=== PATIENT | male | born 1980 | race Caucasian/White ===

== ENCOUNTER 2017-09-29 19:50 | Inpatient (IN) | payer BC ==
[~2017-09-29] VITALS: Ht 177.8 cm; Wt 109.0 kg
[2017-09-29 01:30] VITALS: BP 134/86
[2017-09-29 01:45] VITALS: BP 117/79
[2017-09-29 20:19] LABS: BASOPHILS % (AUTO) 0 % (0-1); EOSINOPHILS % (AUTO) 0.1 % (0-6); HEMATOCRIT 43.4 % (42.0-52.0); HEMOGLOBIN 15.2 g/dl (14.0-17.9); LYMPHOCYTES # (AUTO) 0.7 X10'3 (1.1-4.8); LYMPHOCYTES % (AUTO) 5.4 % (21-51); MEAN CORPUSCULAR HEMOGLOBIN 31.4 PG (27.0-31.0); MEAN CORPUSCULAR HGB CONC 35.1 % (33.0-36.5); MEAN CORPUSCULAR VOLUME 89.6 FL (78-98); MEAN PLATELET VOLUME 9.4 FL (7.4-10.4); MONOCYTES # (AUTO) 0.6 X10'3 (0-0.9); NEUTROPHILS # (AUTO) 12.6 X10'3 (1.8-7.7); NEUTROPHILS % (AUTO) 90.5 % (42-75); PLATELET COUNT 197 X10'3 (140-440); RED BLOOD COUNT 4.84 X10'6 (4.70-6.10); RED CELL DISTRIBUTION WIDTH 12.4 % (11.5-14.5); WHITE BLOOD COUNT 13.9 X10'3 (4.5-11.0)
[2017-09-29] MEDS ORDERED: LORazepam 2 mg/ml vial IV ONE (20:20)
[2017-09-29] MEDS ORDERED: metoclopramide 5 mg/ml inj IV ONE (20:20)
[2017-09-29] MEDS ORDERED: normal saline 1000ML IV soln IVB ONE ×2 (20:20)
[2017-09-29] MEDS ORDERED: diphenhydrAMINE 50 mg/ml inj IV ONE (20:20)
[2017-09-29 20:29] LABS: PROTHROMBIN TIME 10.4 SECONDS (9.0-12.0)
[2017-09-29 20:35] LABS: ALANINE AMINOTRANSFERASE 40 U/L (12-78); ALBUMIN 4.1 G/DL (3.4-5.0); ALKALINE PHOSPHATASE 76 IU/L (46-116); AMYLASE 34 U/L (25-115); ANION GAP 11 (8-16); ASPARTATE AMINO TRANSFERASE 20 U/L (10-37); BLOOD UREA NITROGEN 10 MG/DL (7-18); BUN/CREATININE RATIO 9.2 (5.4-32.0); CALCIUM 8.9 MG/DL (8.5-10.1); CHLORIDE 97 MMOL/L (99-107); CREATININE 1.09 MG/DL (0.60-1.10); GLUCOSE 169 MG/DL (70-104); LIPASE 61 U/L (73-393); POTASSIUM 4.6 MMOL/L (3.5-5.1); SODIUM 133 MMOL/L (135-145); TOTAL CARBON DIOXIDE 25.3 MMOL/L (24-32); TOTAL PROTEIN 8.1 G/DL (6.4-8.2); eGFR 77 ML/MIN
[2017-09-29] MEDS ORDERED: piperacillin/tazo 4.5gm/100ml 100 ML IV SCH (21:45)
[2017-09-29] MEDS ORDERED: ESCI10TA54 PO (21:46)
[2017-09-29] MEDS ORDERED: LISI-600 PO (21:46)
[2017-09-29] MEDS ORDERED: AMLO2.5T2 PO (21:46)
[2017-09-29] MEDS ORDERED: morphine 4 MG/ML inj SYRINge IV PRN ×4 (21:55→22:55)
[2017-09-29] MEDS ORDERED: potassium Cl 40MEQ/NS 500ml 500 ML IV PRN ×2 (22:10)
[2017-09-29] MEDS ORDERED: magnesium 2GM in 50ml NS 50 ML IV PRN (22:10)
[2017-09-29] MEDS ORDERED: magnesium 4gm in 100ml NS 100 ML IV PRN (22:10)
[2017-09-29] MEDS ORDERED: acetaminophen 650mg rectal suppository RC PRN (22:10)
[2017-09-29] MEDS ORDERED: ondansetron/PF 4mg/2ml inj IV PRN ×2 (22:10→22:55)
[2017-09-29] MEDS ORDERED: potassium Cl 20 mEq SR tablet PO PRN ×2 (22:10)
[2017-09-29] MEDS ORDERED: ondansetron/PF 4mg/2ml inj ONE (22:45)
[2017-09-29] MEDS ORDERED: glycopyrrolate 0.2mg/ml inj ONE (22:45)
[2017-09-29] MEDS ORDERED: neostigmine methylsulfate 1 MG/ML 10ml vial ONE (22:45)
[2017-09-29] MEDS ORDERED: desflurane 240ml liquid inh. IH ONE (22:45)
[2017-09-29] MEDS ORDERED: dexamethasone sod phosphate 4mg/ml inj. ONE (22:45)
[2017-09-29] MEDS ORDERED: ringers solution, lacted 1,000 ML IV SCH (22:51)
[2017-09-29] MEDS ORDERED: BUPIVAcaine/PF 2.5mg/ml (0.25%) 10ml vial ONE (22:53)
[2017-09-29] MEDS ORDERED: proCHLORperazine 10 MG/2 ml inj IV PRN (22:55)
[2017-09-29] MEDS ORDERED: meperidine/PF 25mg/ml syringe IV PRN (22:55)
[2017-09-29] MEDS ORDERED: acetaminophen 1,000mg/100ml IV 100 ML IV PRN (22:55)
[2017-09-29] MEDS ORDERED: fentaNYL/PF 50MCG/1 ML 2ML syringe IV PRN (22:55)
[2017-09-29] MEDS ORDERED: midazolam 2 mg/2 ml injection ONE (23:00)
[2017-09-29] MEDS ORDERED: fentaNYL /PF 50mcg/ml 5ml ampule ONE (23:01)
[2017-09-29] MEDS ORDERED: LIDOcaine 2% 5ml jelly ONE (23:03)
[2017-09-30] VITALS (16 sets, daily range): BP systolic 108–160; BP diastolic 69–91
[2017-09-30] MEDS ORDERED: metroNIDAZOLE-Flagyl 500mg/NS 100 ML IV SCH
[2017-09-30] MEDS ORDERED: gentamicin 40 MG/1 ML inj ONE (00:07)
[2017-09-30] MEDS ORDERED: clindamycin phosphate 150mg/ml inj. ONE (00:07)
[2017-09-30] MEDS ORDERED: LIDOcaine 2% (20mg/ml) 5ml vial ONE (00:23)
[2017-09-30] MEDS ORDERED: LIDOcaine 2% 5ml jelly ONE (00:24)
[2017-09-30] MEDS ORDERED: rocuronium 10mg/ml inj IV ONE (00:24)
[2017-09-30] MEDS ORDERED: propofol inj 20 ML IV ONE (00:24)
[2017-09-30] MEDS: fentaNYL/PF 50MCG/1 ML 2ML syringe IV PRN ×2 (00:51→01:03)
[2017-09-30] MEDS: metroNIDAZOLE-Flagyl 500mg/NS 100 ML IV SCH ×4 (02:51→23:48)
[2017-09-30] MEDS ORDERED: piperacillin/tazo 3.375gm/50ml 50 ML IV ONE (02:58)
[2017-09-30] MEDS: normal saline 1000ml 1,000 ML IV SCH ×3 (03:00→15:29)
[2017-09-30] MEDS: piperacillin/tazo 3.375gm/50ml 50 ML IV SCH ×4 (03:41→20:19)
[2017-09-30 04:53] LABS: BASOPHILS % (AUTO) 0 % (0-1); EOSINOPHILS % (AUTO) 0 % (0-6); HEMOGLOBIN 13.3 g/dl (14.0-17.9); LYMPHOCYTES # (AUTO) 0.3 X10'3 (1.1-4.8); LYMPHOCYTES % (AUTO) 3.8 % (21-51); MEAN CORPUSCULAR VOLUME 91.4 FL (78-98); MONOCYTES # (AUTO) 0.5 X10'3 (0-0.9); MONOCYTES % (AUTO) 5.6 % (2-12); NEUTROPHILS # (AUTO) 7.5 X10'3 (1.8-7.7); NEUTROPHILS % (AUTO) 90.6 % (42-75); PLATELET COUNT 160 X10'3 (140-440); RED BLOOD COUNT 4.15 X10'6 (4.70-6.10); WHITE BLOOD COUNT 8.2 X10'3 (4.5-11.0)
[2017-09-30 05:34] LABS: PARTIAL THROMBOPLASTIN TIME 28 SECONDS (22-32); PROTHROMBIN TIME 10.7 SECONDS (9.0-12.0)
[2017-09-30 05:50] LABS: ALANINE AMINOTRANSFERASE 55 U/L (12-78); ALBUMIN 3.2 G/DL (3.4-5.0); ALBUMIN/GLOBULIN RATIO 0.9 (1.1-1.5); ALKALINE PHOSPHATASE 52 IU/L (46-116); ANION GAP 11 (8-16); ASPARTATE AMINO TRANSFERASE 33 U/L (10-37); BILIRUBIN,TOTAL 1.3 MG/DL (0.1-1.0); BLOOD UREA NITROGEN 12 MG/DL (7-18); BUN/CREATININE RATIO 9.1 (5.4-32.0); CALCIUM 7.8 MG/DL (8.5-10.1); CHLORIDE 102 MMOL/L (99-107); CREATININE 1.32 MG/DL (0.60-1.10); GLUCOSE 146 MG/DL (70-104); MAGNESIUM 1.4 MG/DL (1.5-2.4); POTASSIUM 4.8 MMOL/L (3.5-5.1); SODIUM 137 MMOL/L (135-145); TOTAL PROTEIN 6.6 G/DL (6.4-8.2); eGFR 62 ML/MIN
[2017-09-30 06:08] LABS: PLATELET ESTIMATE NORMAL; TOTAL CELLS COUNTED 100
[2017-09-30] MEDS: morphine 4 MG/ML inj SYRINge IV PRN ×4 (07:34→19:50)
[2017-09-30] MEDS: lactobacillus rhamnosus 10,000 MMU CELLS/CAPSULE PO SCH ×2 (07:36→20:20)
[2017-09-30] MEDS: enoxaparin 40mg/0.4ml syringe SUBCUT SCH (07:37)
[2017-09-30] MEDS: methylnaltrexone br 12mg/0.6ml inj***SubQ only SQ SCH (07:37)
[2017-09-30] MEDS: magnesium Cl slow-release 64mg tablet PO PRN ×2 (07:37→22:21)
[2017-09-30] MEDS: K and/or MAG REPLACEMENT MC SCH (07:38)
[2017-09-30] MEDS: HYDROcodone/acetaminophen 5mg/325mg tablet PO PRN ×4 (09:41→22:20)
[2017-09-30] MEDS ORDERED: thiamine 100mg/ml 2ml inj. IV ONE (15:05)
[2017-09-30] MEDS ORDERED: dextrose 50%-water 50ml dispensing syringe IV PRN (15:05)
[2017-09-30] MEDS ORDERED: haloperidol lactate 5mg/ml inj IM PRN (15:05)
[2017-09-30] MEDS ORDERED: LORazepam 2 mg/ml vial IV PRN (15:05)
[2017-09-30] MEDS ORDERED: haloperidol 5mg tablet PO PRN (15:05)
[2017-10-01] VITALS: BP 147/99
[2017-10-01] MEDS: morphine 4 MG/ML inj SYRINge IV PRN ×5 (01:28→20:03)
[2017-10-01] MEDS: piperacillin/tazo 3.375gm/50ml 50 ML IV SCH ×4 (02:00→20:03)
[2017-10-01 03:43] LABS: BASOPHILS % (AUTO) 0.1 % (0-1); EOSINOPHILS # (AUTO) 0.6 X10'3 (0-0.9); EOSINOPHILS % (AUTO) 7.7 % (0-6); HEMATOCRIT 37.9 % (42.0-52.0); HEMOGLOBIN 13.2 g/dl (14.0-17.9); LYMPHOCYTES # (AUTO) 0.5 X10'3 (1.1-4.8); LYMPHOCYTES % (AUTO) 5.8 % (21-51); MEAN CORPUSCULAR HEMOGLOBIN 31.7 PG (27.0-31.0); MEAN CORPUSCULAR HGB CONC 34.7 % (33.0-36.5); MEAN CORPUSCULAR VOLUME 91.4 FL (78-98); MEAN PLATELET VOLUME 9.1 FL (7.4-10.4); MONOCYTES # (AUTO) 0.5 X10'3 (0-0.9); NEUTROPHILS # (AUTO) 6.6 X10'3 (1.8-7.7); NEUTROPHILS % (AUTO) 80.4 % (42-75); PLATELET COUNT 150 X10'3 (140-440); RED BLOOD COUNT 4.15 X10'6 (4.70-6.10); RED CELL DISTRIBUTION WIDTH 13.3 % (11.5-14.5); WHITE BLOOD COUNT 8.2 X10'3 (4.5-11.0)
[2017-10-01 04:02] LABS: ALANINE AMINOTRANSFERASE 39 U/L (12-78); ALBUMIN 2.9 G/DL (3.4-5.0); ALBUMIN/GLOBULIN RATIO 0.7 (1.1-1.5); ALKALINE PHOSPHATASE 45 IU/L (46-116); ANION GAP 11 (8-16); ASPARTATE AMINO TRANSFERASE 24 U/L (10-37); BILIRUBIN,TOTAL 0.9 MG/DL (0.1-1.0); BLOOD UREA NITROGEN 14 MG/DL (7-18); BUN/CREATININE RATIO 13.5 (5.4-32.0); CHLORIDE 103 MMOL/L (99-107); CREATININE 1.04 MG/DL (0.60-1.10); GLUCOSE 133 MG/DL (70-104); MAGNESIUM 2.2 MG/DL (1.5-2.4); POTASSIUM 4.2 MMOL/L (3.5-5.1); SODIUM 140 MMOL/L (135-145); TOTAL CARBON DIOXIDE 26.5 MMOL/L (24-32); TOTAL PROTEIN 7.3 G/DL (6.4-8.2); eGFR 81 ML/MIN
[2017-10-01] MEDS: HYDROcodone/acetaminophen 5mg/325mg tablet PO PRN (04:10)
[2017-10-01] MEDS: normal saline 1000ml 1,000 ML IV SCH ×2 (04:10→15:24)
[2017-10-01 06:55] LABS: INR 1.1 INR; PARTIAL THROMBOPLASTIN TIME 34 SECONDS (22-32)
[2017-10-01 07:28] VITALS: BP 132/97
[2017-10-01] MEDS: K and/or MAG REPLACEMENT MC SCH (08:00)
[2017-10-01] MEDS: amLODIPine 2.5mg tablet PO SCH (09:32)
[2017-10-01] MEDS: lisinopril 20mg tablet PO SCH (09:32)
[2017-10-01] MEDS: enoxaparin 40mg/0.4ml syringe SUBCUT SCH (09:33)
[2017-10-01] MEDS: citalopram 20mg tablet PO SCH (09:33)
[2017-10-01] MEDS: lactobacillus rhamnosus 10,000 MMU CELLS/CAPSULE PO SCH ×2 (09:33→20:02)
[2017-10-01] MEDS: metroNIDAZOLE-Flagyl 500mg/NS 100 ML IV SCH (10:18)
[2017-10-01 12:20] VITALS: BP 159/105
[2017-10-01] MEDS ORDERED: hydrALAZINE 20mg/ml inj. IV PRN (13:10)
[2017-10-01 16:55] VITALS: BP 135/88
[2017-10-01 20:00] VITALS: BP 133/86
[2017-10-02] VITALS: BP 137/84
[2017-10-02] MEDS: normal saline 1000ml 1,000 ML IV SCH ×4 (00:14→21:52)
[2017-10-02] MEDS: morphine 4 MG/ML inj SYRINge IV PRN ×6 (00:15→21:48)
[2017-10-02] MEDS: piperacillin/tazo 3.375gm/50ml 50 ML IV SCH ×4 (02:04→19:27)
[2017-10-02 05:47] LABS: PARTIAL THROMBOPLASTIN TIME 30 SECONDS (22-32)
[2017-10-02 05:48] LABS: BASOPHILS % (AUTO) 0.2 % (0-1); EOSINOPHILS # (AUTO) 0.1 X10'3 (0-0.9); EOSINOPHILS % (AUTO) 1.4 % (0-6); HEMATOCRIT 36.3 % (42.0-52.0); HEMOGLOBIN 12.7 g/dl (14.0-17.9); LYMPHOCYTES # (AUTO) 0.6 X10'3 (1.1-4.8); LYMPHOCYTES % (AUTO) 7.3 % (21-51); MEAN CORPUSCULAR HEMOGLOBIN 31.8 PG (27.0-31.0); MEAN CORPUSCULAR VOLUME 90.8 FL (78-98); MEAN PLATELET VOLUME 9.9 FL (7.4-10.4); MONOCYTES # (AUTO) 0.5 X10'3 (0-0.9); MONOCYTES % (AUTO) 6.4 % (2-12); NEUTROPHILS # (AUTO) 7.2 X10'3 (1.8-7.7); NEUTROPHILS % (AUTO) 84.7 % (42-75); PLATELET COUNT 168 X10'3 (140-440); RED CELL DISTRIBUTION WIDTH 12.8 % (11.5-14.5); WHITE BLOOD COUNT 8.5 X10'3 (4.5-11.0)
[2017-10-02 06:08] LABS: ALANINE AMINOTRANSFERASE 30 U/L (12-78); ALBUMIN 2.5 G/DL (3.4-5.0); ALBUMIN/GLOBULIN RATIO 0.6 (1.1-1.5); ALKALINE PHOSPHATASE 182 IU/L (46-116); ANION GAP 8 (8-16); ASPARTATE AMINO TRANSFERASE 25 U/L (10-37); BILIRUBIN,TOTAL 0.8 MG/DL (0.1-1.0); BLOOD UREA NITROGEN 17 MG/DL (7-18); BUN/CREATININE RATIO 17.3 (5.4-32.0); CALCIUM 8.4 MG/DL (8.5-10.1); CHLORIDE 102 MMOL/L (99-107); CREATININE 0.98 MG/DL (0.60-1.10); GLUCOSE 98 MG/DL (70-104); MAGNESIUM 2.1 MG/DL (1.5-2.4); POTASSIUM 3.9 MMOL/L (3.5-5.1); SODIUM 136 MMOL/L (135-145); TOTAL CARBON DIOXIDE 25.8 MMOL/L (24-32); TOTAL PROTEIN 6.7 G/DL (6.4-8.2); eGFR 87 ML/MIN
[2017-10-02 07:00] VITALS: BP 133/80
[2017-10-02] MEDS: K and/or MAG REPLACEMENT MC SCH (08:00)
[2017-10-02] MEDS: lactobacillus rhamnosus 10,000 MMU CELLS/CAPSULE PO SCH ×2 (08:06→19:27)
[2017-10-02] MEDS: citalopram 20mg tablet PO SCH (08:07)
[2017-10-02] MEDS: lisinopril 20mg tablet PO SCH (08:07)
[2017-10-02] MEDS: amLODIPine 2.5mg tablet PO SCH (08:08)
[2017-10-02] MEDS: methylnaltrexone br 12mg/0.6ml inj***SubQ only SQ SCH (08:09)
[2017-10-02] MEDS: enoxaparin 40mg/0.4ml syringe SUBCUT SCH (08:09)
[2017-10-02 10:55] VITALS: BP 133/80
[2017-10-02] MEDS: HYDROcodone/acetaminophen 5mg/325mg tablet PO PRN ×2 (11:54→19:28)
[2017-10-02 12:00] VITALS: BP 170/104
[2017-10-02] MEDS ORDERED: LORazepam 1 MG tablet PO PRN (15:05)
[2017-10-02] MEDS ORDERED: LORazepam 2 mg/ml vial IV PRN (15:05)
[2017-10-02 18:00] VITALS: BP 139/86
[2017-10-03] VITALS: BP 141/88
[2017-10-03] MEDS: piperacillin/tazo 3.375gm/50ml 50 ML IV SCH ×4 (01:39→20:46)
[2017-10-03] MEDS: morphine 4 MG/ML inj SYRINge IV PRN ×2 (02:41→08:19)
[2017-10-03 05:23] LABS: BASOPHILS % (AUTO) 0.1 % (0-1); EOSINOPHILS # (AUTO) 0.1 X10'3 (0-0.9); EOSINOPHILS % (AUTO) 1.7 % (0-6); HEMATOCRIT 35.3 % (42.0-52.0); HEMOGLOBIN 12.4 g/dl (14.0-17.9); LYMPHOCYTES # (AUTO) 0.6 X10'3 (1.1-4.8); LYMPHOCYTES % (AUTO) 8.8 % (21-51); MEAN CORPUSCULAR HEMOGLOBIN 31.6 PG (27.0-31.0); MEAN CORPUSCULAR VOLUME 90.3 FL (78-98); MEAN PLATELET VOLUME 9.4 FL (7.4-10.4); MONOCYTES # (AUTO) 0.7 X10'3 (0-0.9); NEUTROPHILS # (AUTO) 5.7 X10'3 (1.8-7.7); NEUTROPHILS % (AUTO) 79.4 % (42-75); PLATELET COUNT 179 X10'3 (140-440); RED BLOOD COUNT 3.91 X10'6 (4.70-6.10); RED CELL DISTRIBUTION WIDTH 12.7 % (11.5-14.5); WHITE BLOOD COUNT 7.2 X10'3 (4.5-11.0)
[2017-10-03 05:27] LABS: PROTHROMBIN TIME 10.4 SECONDS (9.0-12.0)
[2017-10-03 05:51] LABS: ALANINE AMINOTRANSFERASE 33 U/L (12-78); ALBUMIN 2.3 G/DL (3.4-5.0); ALBUMIN/GLOBULIN RATIO 0.5 (1.1-1.5); ALKALINE PHOSPHATASE 50 IU/L (46-116); ANION GAP 9 (8-16); ASPARTATE AMINO TRANSFERASE 24 U/L (10-37); BILIRUBIN,TOTAL 1.1 MG/DL (0.1-1.0); BLOOD UREA NITROGEN 12 MG/DL (7-18); BUN/CREATININE RATIO 12.6 (5.4-32.0); CALCIUM 8.1 MG/DL (8.5-10.1); CHLORIDE 100 MMOL/L (99-107); CREATININE 0.95 MG/DL (0.60-1.10); GLUCOSE 98 MG/DL (70-104); POTASSIUM 3.7 MMOL/L (3.5-5.1); SODIUM 134 MMOL/L (135-145); TOTAL PROTEIN 6.5 G/DL (6.4-8.2); eGFR 90 ML/MIN
[2017-10-03] MEDS: K and/or MAG REPLACEMENT MC SCH (08:00)
[2017-10-03] MEDS: lactobacillus rhamnosus 10,000 MMU CELLS/CAPSULE PO SCH ×2 (08:28→20:47)
[2017-10-03] MEDS: lisinopril 20mg tablet PO SCH (08:28)
[2017-10-03] MEDS: citalopram 20mg tablet PO SCH (08:28)
[2017-10-03] MEDS: enoxaparin 40mg/0.4ml syringe SUBCUT SCH (08:29)
[2017-10-03 08:39] VITALS: BP 134/89
[2017-10-03] MEDS: diatr meglu/diatrizoate 30ml oral sol.-(3 dose) bottle PO SCH ×3 (09:50→14:24)
[2017-10-03] MEDS: amLODIPine 5mg tablet PO SCH (10:07)
[2017-10-03 11:00] VITALS: BP 134/87
[2017-10-03] MEDS: HYDROcodone/acetaminophen 5mg/325mg tablet PO PRN (11:09)
[2017-10-03] MEDS: normal saline 1000ml 1,000 ML IV SCH (11:59)
[2017-10-03] MEDS: HYDROcodone/acetaminophen 10/325mg tab PO PRN ×2 (15:57→20:47)
[2017-10-03 20:00] VITALS: BP 138/81
[2017-10-04] VITALS: BP 141/92
[2017-10-04] MEDS: normal saline 1000ml 1,000 ML IV SCH ×2 (01:21→12:09)
[2017-10-04] MEDS: piperacillin/tazo 3.375gm/50ml 50 ML IV SCH ×3 (02:11→13:45)
[2017-10-04] MEDS: HYDROcodone/acetaminophen 10/325mg tab PO PRN ×3 (02:15→17:22)
[2017-10-04 05:43] LABS: BASOPHILS % (AUTO) 0.3 % (0-1); EOSINOPHILS # (AUTO) 0.2 X10'3 (0-0.9); EOSINOPHILS % (AUTO) 3.1 % (0-6); HEMATOCRIT 36.4 % (42.0-52.0); HEMOGLOBIN 12.7 g/dl (14.0-17.9); LYMPHOCYTES # (AUTO) 0.8 X10'3 (1.1-4.8); LYMPHOCYTES % (AUTO) 11.9 % (21-51); MEAN CORPUSCULAR HEMOGLOBIN 31.7 PG (27.0-31.0); MEAN CORPUSCULAR HGB CONC 34.8 % (33.0-36.5); MEAN CORPUSCULAR VOLUME 91.1 FL (78-98); MEAN PLATELET VOLUME 9.1 FL (7.4-10.4); MONOCYTES # (AUTO) 0.8 X10'3 (0-0.9); MONOCYTES % (AUTO) 10.9 % (2-12); NEUTROPHILS # (AUTO) 5.2 X10'3 (1.8-7.7); NEUTROPHILS % (AUTO) 73.8 % (42-75); PLATELET COUNT 197 X10'3 (140-440); RED CELL DISTRIBUTION WIDTH 12.6 % (11.5-14.5)
[2017-10-04 06:05] LABS: ALANINE AMINOTRANSFERASE 39 U/L (12-78); ALBUMIN 2.4 G/DL (3.4-5.0); ALBUMIN/GLOBULIN RATIO 0.5 (1.1-1.5); ALKALINE PHOSPHATASE 60 IU/L (46-116); ANION GAP 8 (8-16); ASPARTATE AMINO TRANSFERASE 28 U/L (10-37); BILIRUBIN,TOTAL 0.5 MG/DL (0.1-1.0); BLOOD UREA NITROGEN 11 MG/DL (7-18); BUN/CREATININE RATIO 10.4 (5.4-32.0); CALCIUM 8.7 MG/DL (8.5-10.1); CHLORIDE 103 MMOL/L (99-107); CREATININE 1.06 MG/DL (0.60-1.10); GLUCOSE 93 MG/DL (70-104); MAGNESIUM 2.2 MG/DL (1.5-2.4); POTASSIUM 3.6 MMOL/L (3.5-5.1); SODIUM 139 MMOL/L (135-145); TOTAL CARBON DIOXIDE 28.4 MMOL/L (24-32); TOTAL PROTEIN 6.9 G/DL (6.4-8.2); eGFR 80 ML/MIN
[2017-10-04 07:00] VITALS: BP 122/83
[2017-10-04] MEDS: methylnaltrexone br 12mg/0.6ml inj***SubQ only SQ SCH (07:50)
[2017-10-04] MEDS: amLODIPine 5mg tablet PO SCH (07:51)
[2017-10-04] MEDS: HYDROcodone/acetaminophen 5mg/325mg tablet PO PRN (07:51)
[2017-10-04] MEDS: lisinopril 20mg tablet PO SCH (07:51)
[2017-10-04] MEDS: citalopram 20mg tablet PO SCH (07:51)
[2017-10-04] MEDS: lactobacillus rhamnosus 10,000 MMU CELLS/CAPSULE PO SCH (07:51)
[2017-10-04] MEDS: enoxaparin 40mg/0.4ml syringe SUBCUT SCH (07:52)
[2017-10-04] MEDS: K and/or MAG REPLACEMENT MC SCH (07:52)
[2017-10-04] MEDS: morphine 4 MG/ML inj SYRINge IV PRN (10:00)
[2017-10-04 11:58] VITALS: BP 139/87
[2017-10-04] MEDS ORDERED: LORazepam 2 mg/ml vial IV PRN (15:05)
[2017-10-04] MEDS ORDERED: LORazepam 1 MG tablet PO PRN (15:05)
[2017-10-04] MEDS ORDERED: AMOX-422 PO (17:20)
== END 2017-10-04 17:46 | disposition home or self-care (01) | DRG 339 ==
LOC: ER 19:51 → ED HOLD 22:09 → SUR 3N 09-30 01:25
PROVIDERS: ADMIT Internal Medicine; ATTEND Internal Medicine
PROC: 0DJD4ZZ Inspection of Lower Intestinal Tract, Percutaneous Endoscopic Approach (ICD-10-PCS; 2017-09-29)
PROC: 0DTJ0ZZ Resection of Appendix, Open Approach (ICD-10-PCS; principal; 2017-09-29 22:45)
DX: K35.2 Acute appendicitis with generalized peritonitis (principal); K56.7 Ileus, unspecified; E66.01 Morbid (severe) obesity due to excess calories; I10 Essential (primary) hypertension; M10.9 Gout, unspecified; Z79.899 Other long term (current) drug therapy; Z68.34 Body mass index [BMI] 34.0-34.9, adult
CPT/HCPCS: 99285; Z7506; 36415; 74018; 74176; 80053; 82150; 82948; 83690; 83735; 85025; 85610; 85730; 87070; 87077; 87186; 93005; A4315; A6212; A6251; A6253; A6255; A6257; A6266; A6449; A7000; J0131; J0360; J1100; J1200; J1580; J1650; J2001; J2060; J2175; J2250; J2270; J2405; J2543; J2704; J2710; J2765; J3010; J3411; J3490; J7030; J7120; Q9963

== ENCOUNTER 2025-05-06 11:50 | Inpatient (IN) | payer BC, MEDICAID ==
[~2025-05-06] VITALS: Ht 177.8 cm; Wt 116.1 kg
[~2025-05-06 11:50] MED LIST: AMLO2.5T2 PO; ESCI-8 PO; LISI20TA28 PO
[2025-05-06 12:24] LABS: MEAN PLATELET VOLUME 9.0 FL (7.4-10.4); RED CELL DISTRIBUTION WIDTH 13.3 % (11.5-14.5)
--- NOTE | 2025-05-06 12:37 | Physician Documentation ---
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 STATES HE HAS BEEN ATTEMPTING TO TREND DOWNWARD FROM HIS INTAKE WHICH IS TYPICALLY 1/5 OF HARD ALCOHOL DAILY. STATES HE IS NOT ABLE TO SLEEP HAS TREMORS DENIES ANY CHEST PAIN. HE TRIED TAKING NALTREXONE BUT IT MADE HIM SICK.. STATES HE WANTS TO QUIT DRINKING BUT DOES NOT KNOW HOW NEVER HAD ALCOHOL-INDUCED SEIZURE Tetanus within 5 years?: No Medication Reconciliation Allergies: Coded Allergies: No Known Allergies (Unverified , 05/06/25) Scheduled Allopurinol* (Allopurinol*), 1 TAB PO DAILY, (Reported) Amlodipine* (Norvasc*), 4 TAB PO DAILY, (Reported) Lisinopril (Lisinopril), 1 TAB PO DAILY, (Reported) Naltrexone Hcl (Naltrexone Hcl), 1 TAB PO DAILY, (Reported) Omeprazole (Prilosec), 1 CAP PO DAILY, (Reported) Discontinued Medications Escitalopram Oxalate (Escitalopram Oxalate), 1 TAB PO DAILY, (Reported) Discontinued Reason: patient no longer taking Past Medical History Past Medical History: Hypertension, Gout Past Surgical History: no surgical history Drug Use: none Lives In: Home Physical Exam Vital Signs: Temperature: 97.5, Source: Temporal, Heart Rate: 120, Respiratory Rate: 20, BP: 174/104, Pulse Oximetry: 97, Weight: 116.100 Oxygen Flow Rate: 0 Progress Results/Orders Results/Orders Orders - DOV FARRELL CONNIE CLEANER Page Hospitalist (05/06/25 ) Phenobarbital (05/06/25 14:23) Phenobarbital Inj (Phenobarbital Inj.) (05/06/25 14:41) Completed Orders - DOV FARRELL CONNIE CLEANER Cbc/Diff (05/06/25 12:01) BMP (05/06/25 12:01) Lipase (05/06/25 12:01) CMP (05/06/25 12:01) Diazepam Inj (Valium Inj) (05/06/25 12:05) Folic Acid Inj. (Folic Acid Inj.) (05/06/25 12:05) Thiamine Inj. (Thiamine Inj.) (05/06/25 12:05) Normal Saline 1000ml (0.9% Sodium Chlori (05/06/25 12:05) Electrocardiogram (05/06/25 ) MG (05/06/25 12:45) Ua W/Microscopic, Cult If Ind (05/06/25 12:15) Diazepam Inj (Valium Inj) (05/06/25 13:00) Diazepam Inj (Valium Inj) (05/06/25 13:00) Acetone, Serum (05/06/25 13:01) Magnesium Sulf-Water 2g/50ml (Magnesium (05/06/25 13:05) Phenobarbital Inj (Phenobarbital Inj.) (05/06/25 20:00) Phenobarbital Inj (Phenobarbital Inj.) (05/06/25 14:39) Medications Received in ER Medications (Trade) Dose Ordered Sig/Ricki Route PRN Reason Start Time Stop Time Status Last Admin Dose Admin (Valium inj) 10 mg ONCE ONCE IV 05/06/25 12:05 05/06/25 12:06 DC 05/06/25 13:04 10 MG (folic acid inj.) 1 mg ONCE ONCE IV 05/06/25 12:05 05/06/25 12:06 DC 05/06/25 14:45 1 MG (thiamine inj.) 100 mg ONCE ONCE IV 05/06/25 12:05 05/06/25 12:06 DC 05/06/25 13:04 100 MG (0.9% sodium chloride (NS) 1000ml IV soln) 2,000 ml ONCE ONCE IVB 05/06/25 12:05 05/06/25 12:06 DC 05/06/25 13:05 2,000 ML (Valium inj) 10 mg ONCE ONCE IV 05/06/25 13:00 05/06/25 13:01 DC 05/06/25 13:49 10 MG Magnesium Sulfate 50 ml @ 25 mls/hr ONCE ONCE IV 05/06/25 13:05 05/06/25 15:04 DC 05/06/25 13:49 25 MLS/HR Vital Signs 05/06/25 05/06/25 05/06/25 05/06/25 11:52 13:04 13:17 13:32 Temp 97.5 Pulse 120 107 Resp 20 12 18 16 B/P (MAP) 174/104 144/101 (115) Pulse Ox 97 95 O2 Flow Rate 0 05/06/25 13:49 Resp 15 Laboratory Tests Test 05/06/25 12:08 05/06/25 12:15 05/06/25 12:58 05/06/25 13:20 White Blood Count 3.6 L Red Blood Count 4.89 Hemoglobin 16.1 Hematocrit 46.9 Mean Corpuscular Volume 95.8 Mean Corpuscular Hemoglobin 32.9 H Mean Corpuscular Hemoglobin Concent 34.4 Red Cell Distribution Width 13.3 Platelet Count 137 L Mean Platelet Volume 9.0 Neutrophils (%) (Auto) 65.0 Lymphocytes (%) (Auto) 20.6 L Monocytes (%) (Auto) 11.0 Eosinophils (%) (Auto) 2.7 Basophils (%) (Auto) 0.7 Neutrophils # (Auto) 2.3 Lymphocytes # (Auto) 0.7 L Monocytes # (Auto) 0.4 Eosinophils # (Auto) 0.1 Basophils # (Auto) 0.0 CBC Comment Sodium Level 140 Potassium Level 3.6 Chloride Level 101 Carbon Dioxide Level 23.7 L Anion Gap 15 Blood Urea Nitrogen 9 Creatinine 0.79 Estimated GFR/1.73 m2 > 90 BUN/Creatinine Ratio 11.4 Glucose Level 162 H Calcium Level 8.9 Total Bilirubin 1.3 H Aspartate Amino Transf (AST/SGOT) 300 H Alanine Aminotransferase (ALT/SGPT) 271 H Alkaline Phosphatase 123 H Total Protein 8.5 H Albumin 4.0 Globulin 4.5 H Albumin/Globulin Ratio 0.9 L Lipase 52 Chemistry Comments Urine Specimen Description Cln catch midstream Urine Color Dark yellow Urine Clarity Clear Urine pH 6.0 Urine Specific [place] 1.025 Urine Protein >=300 H Urine Glucose (UA) Negative Urine Ketones 15 H Urine Occult Blood Trace-intact Urine Nitrite Negative Urine Bilirubin Moderate Urine Urobilinogen 2.0 H Urine Leukocyte Esterase Negative Urine RBC 0-2 Urine WBC 0-4 Urine Squamous Epithelial Cells Few Urine Bacteria 2+ Urine Fine Granular Casts 0-3 Urine Coarse Granular Casts 3-5 Urine Mucus Few Urine Culture Indicated Not ind Volume Urine Centrifuged 10 ml Urine Comment Magnesium Level 1.8 Acetone Level Negative Test 05/06/25 14:30 Medical Decision Making Additional information obtaine: old records Findings AT APPROXIMATELY 12:55 P.M. PATIENT HAD A SUSPECTED ALCOHOL WITHDRAWAL INDUCED SEIZURE.. And was moderately postictal afterwards for several minutes . We moved him to ANOTHER ROOM FOR ADDITIONAL EVALUATION CURRENTLY HAS A CIWA SCORE OF 24 INDICATING SEVERE ALCOHOL WITHDRAWAL Patient has received multiple treatments via Valium Considering he has never had a seizure before I am requesting hospital admission and I am going to start him on phenobarbital. Patient is adamant that he wants to stop drinking but does not feel he has the resources or know how to do so. Resting further evaluation in this regard. Differential Dx:Considerations: Intoxication - ETOH, Intoxication - other drug, Sub. Abuse -continuous, Sub. Abuse-intermittent, Skull fracture, Fracture - other bone, Personality disorder, Closed head injury, Cervical spine injury, Abrasion, Confusion, Hematoma, Laceration, Foreign body, Dehydration, Encephalopathy, Hepatitis, Pancreatitis, Thiamine deficiency, Other Departure Disposition: ADMITTED INPATIENT Impression: Primary Impression: Alcohol abuse Additional Impression: Alcohol withdrawal syndrome Referrals: NO PRIMARY CARE PROVIDER (PCP) Signature Scribe Signature: RF Attestation: Scribed for Dov Farrell Roll Filler by Dov Gates NP . 05/06/25 13:05 DOV FARRELL NP May 06, 2025 12:37
[2025-05-06 12:40] LABS: CREATININE 0.79 MG/DL (0.60-1.10); TOTAL CARBON DIOXIDE 23.7 MMOL/L (24-32); eCRCL 126 ML/MIN; eGFR > 90 ML/MIN
[2025-05-06 12:50] LABS: LEUKOCYTE ESTERASE ,URINE NEGATIVE (Neg); NITRITES, URINE NEGATIVE (Neg); OCCULT BLOOD,URINE TRACE-INTACT (Neg)
[2025-05-06 12:56] LABS: UA COLLECTION TYPE CLN CATCH MIDSTREAM
[2025-05-06 12:58] LABS: FINE GRANULAR CAST 0-3 /LPF (NEGATIVE); MUCUS STRANDS FEW /LPF (Neg); SQUAMOUS EPITHELIAL CELL,UR FEW /LPF (FEW)
--- NOTE | 2025-05-06 13:03 | ELECTROCARDIOGRAPH REPORT ---
[facility] Test Date: 2025-05-06 Test Time: 13:02:37 Pat Name: RADHA QUIÑONES Department: [facility]-ER Patient ID: [id number] Room: [place] [id number] Gender: M Merchandising Representative: : 1980 Requested By: NIESHA FARRELL Order Number: [id number] Reading MD: Dr. Evans Rosa Measurements Intervals [place] Rate: 111 P: 39 ME: 149 QRS: 45 QRSD: 101 T: 28 QT: 341 QTc: 464 Interpretive Statements Sinus tachycardia Electronically Signed On 05-06-2025 20:01:[address] Evans Rosa Please click the below link to view image of tracing.
[2025-05-06] MEDS: diazepam inj 5 MG/ML inj. IV ONE ×3 (13:04→16:14)
[2025-05-06] MEDS: thiamine 100mg/ml 2ml inj. IV ONE (13:04)
[2025-05-06] MEDS: normal saline 1000ML IV soln IVB ONE (13:05)
[2025-05-06] MEDS ORDERED: ALLO100T PO (13:44)
[2025-05-06] MEDS ORDERED: NALT50TA5 PO (13:44)
[2025-05-06] MEDS ORDERED: OMEP40CA21 PO (13:44)
[2025-05-06] MEDS: magnesium sulf-water 2g/50mL 50 ML IV ONE (13:49)
[2025-05-06 14:00] LABS: ACETONE NEGATIVE (NEGATIVE)
--- NOTE | 2025-05-06 14:38 | HISTORY AND PHYSICAL ---
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 STATES HE HAS BEEN ATTEMPTING TO TREND DOWNWARD FROM HIS INTAKE WHICH IS TYPICALLY 1/5 OF HARD ALCOHOL DAILY. STATES HE IS NOT ABLE TO SLEEP HAS TREMORS DENIES ANY CHEST PAIN. HE TRIED TAKING NALTREXONE BUT IT MADE HIM SICK.. STATES HE WANTS TO QUIT DRINKING BUT DOES NOT KNOW HOW. In emergency department patient was evaluated by medical provider, was diagnosed with alcoholism heavy, withdrawal seizure, alcohol withdrawal syndrome, hypertensive urgency, hepatic steatosis chronic liver disease secondary to alcohol abuse, thrombocytopenia leukopenia, GI bleeding, and decision was made to admit patient for further evaluation and treatment, no additional complaint or concern. Allergies: Coded Allergies: No Known Allergies (Unverified , 05/06/25) Active prescriptions Reviewed reconciled Home Medications Home Medications Active Reported Naltrexone Hcl 50 Mg Tablet 1 Tab PO DAILY 30 Days Allopurinol* (Allopurinol) 100 Mg Tablet 1 Tab PO DAILY 30 Days Prilosec (Omeprazole) 40 Mg Capsule 1 Cap PO DAILY 30 Days Lisinopril 20 Mg Tablet 1 Tab PO DAILY 30 Days Norvasc* (Amlodipine Besylate) 2.5 Mg Tablet 4 Tab PO DAILY 30 Days Past Medical History Past Medical History As in HPI Past Surgical History Surgical History Comment as in HPI Past Social History Social History Comment T4 chronic alcoholism, including currently, positive for chronic marijuana use including currently, deny Street otherwise drug use, live with the family good Health Maintenance Health Maintenance Noncontributory ROS ROS I review of systems Constitutional : no fever , no chills, or weakness. No diaphoresis. Allergic/Immunologic, no lymphadenopathy, no hives, no skin eruptions. Eyes, no recent visual changes, no eye pain, no photophobia. Ears, nose, mouth, throat, no sore throat, no nosebleed, no ear pain. Cardiovascular, no palpitations, skipped beats, chest pain, no peripheral edema, Respiratory, no dyspnea, orthopnea, cough, hemoptysis, chest wall pain. Gastrointestinal, no abdominal pain, nausea, vomiting, constipation or diarrhea. : no dysuria, hematuria, pelvic pain, urethral d/c. Endocrine, no polyuria, polydipsia, recent unintentional weight gain or loss. Hematologic/Lymphatic, no petechiae, no enlarged lymph nodes, no bone pain. Integumentary, no rash, no skin lesions, Musculoskeletal, no muscle aches, or pain, no muscle cramps, no recent change in gait Neurological, no dizziness, no headache, no syncope, no paresthesia. Withdrawal from alcohol seizure Psychiatric, no delusions, visual hallucinations, or hearing hallucinations. ROS - in rest is as in HPI. Exam Vitals: Vital Signs Date Time Temp Pulse Resp B/P (MAP) Pulse Ox O2 Delivery O2 Flow Rate FiO2 05/06/25 13:49 15 05/06/25 13:32 05/06/25 13:17 107 95 05/06/25 11:52 97.5 0 Vital signs, stable ,afebrile. Pulse Oximetry reflects adequate oxygenation. BMI is 36, weight 116 kg General: well developed, well nourished. Awake , alert, and oriented x4, resting comfortably in the bed, in no acute distress . Skin: Warm, dry, no pallor, no rash or petechiae. HEENT: Atraumatic, normocephalic, EOMI, anicteric sclera B; pink conjunctiva; PERRLA, normal oropharynx, moist oral and nasal mucosa. Tympanic membrane , nose , throat clear. Neck: Trachea midline. Supple, full range of motion, no JVD, bruit , hepatojugular reflex , lymphadenopathy or masses, or other lesions Cardiac: Regular rhythm, regular rate no murmurs, rubs, or gallops. Normal S1 and S2, no S3 noticed. PMI is normal. Respiratory: Equal breath sounds bilaterally, no tachypnea; lungs clear to auscultation bilaterally, no wheezing ,rub or rales, or crackles. Chest wall is symmetric and without deformity. No signs of trauma. Chest wall is nontender. No signs of respiratory distress. Resonance is normal upon percussion bilaterally. Gastrointestinal: Abdomen symmetric, non-distended, soft, non-tender, normal bowel sounds x4 quadrant, normoactive, no hepatosplenomegaly , no masses , no bruit, no flank pain bilaterally. No voluntary guarding, rebound, or rigidity. No tenderness to percussion. No pulsatile masses. Equal femoral pulses. No Hanley's sign or McBurney point tenderness. Back; no CVA tenderness bilaterally, no deformities. Neck and back are without deformity as well. No tenderness noted on palpation of the spinous processes. Spinous processes are midline. Cervical, thoracic, and lumbar paraspinal muscles are not tender and are without spasm. : normal external genitalia, without lesions, swelling, masses or tenderness. Musculoskeletal: Extremities, normal range of motion, non-tender, muscle strength 5/5 x 4. Negative Homans signs bilaterally on lower extremity. Distal pulses full symmetrical, no clubbing, cyanosis , edema. Neurological: Speech is clear, alert, and oriented x 4. No motor or sensory deficit, deep tendon reflexes normal, cerebellar intact. Cranial nerves II-XII intact. Psych: Alert and or appropriate, normal affect. Vascular: Good distal pulses, which are equal x4; capillary refill less than 2 seconds. Lymphatic, no lymphadenopathy. Diagnostic Data Last Recorded Lab Results: 05/06/25 1208 05/06/25 1208 Advance Care Planning Advanced Care plannin - 30 Minutes Additional Plan Assessment Chronic alcoholism including ongoing currently Alcohol withdrawal syndrome Withdrawal from alcohol seizure Lower GI bleeding Chronic alcohol liver disease Hepatic steatosis Leukopenia Thrombocytopenia Cancer urgency Tachyarrhythmia dehydration associated with ketonuria Comorbidities, pre morbid obesity, BMI 36, gout, marijuana use recreational, GERD Plan Withdrawal protocol from alcohol Navigator consult Protonix infusion Sandostatin infusion Seizure precautions CT head abdomen pelvis pending Consulted for 5 minutes to stop using marijuana and alcohol patient understood agrees PT evaluation and treatment Blood pressure control GI consult pending I reconciled home medications DVT gastropathy prophylaxis addressed Sepsis Screening Reassessment Date: May 06, 2025 Date of Service: May 06, 2025 Billing Provider: RICHARD MARTINEZ MD Common Visit Codes: 72813-FATHEGWAYL INP/OBS CARE(HIGH) Secondary Visit Codes: 78487-COPKD CHNG SMOKING 3-10M, [id number]-[id number] CARE PLAN 30 MINUTES RICHARD MARTINEZ MD May 06, 2025 14:38
[2025-05-06] MEDS ORDERED: metoclopramide 5 mg/ml inj IV PRN (14:40)
[2025-05-06] MEDS ORDERED: potassium Cl 20 mEq SR tablet PO PRN (14:40)
[2025-05-06] MEDS ORDERED: ondansetron/PF 4mg/2ml inj IV PRN (14:40)
[2025-05-06] MEDS ORDERED: bisacodyl 10mg suppository rectal RC PRN (14:40)
[2025-05-06] MEDS ORDERED: magnesium hydroxide 30ml (MOM) UD suspension PO PRN (14:40)
[2025-05-06] MEDS ORDERED: HYDROcodone/acetaminophen 10/325mg tab PO PRN (14:40)
[2025-05-06] MEDS ORDERED: ondansetron 4mg rapidly disintigrating tab PO PRN (14:40)
[2025-05-06] MEDS ORDERED: acetaminophen 650mg rectal suppository RC PRN (14:40)
[2025-05-06] MEDS ORDERED: magnesium sulf-water 4G/100mL 100 ML IV PRN (14:40)
[2025-05-06] MEDS ORDERED: potassium Cl 40MEQ/1/2NS 520ml 520 ML IV PRN (14:40)
[2025-05-06] MEDS ORDERED: magnesium Cl slow-release 64mg tablet PO PRN (14:40)
[2025-05-06] MEDS ORDERED: dextrose 50%-water 50ml dispensing syringe IV PRN (14:40)
[2025-05-06] MEDS ORDERED: mag hydrox/Alum hydrox/simeth 30ml oral suspension PO PRN (14:40)
[2025-05-06] MEDS ORDERED: HYDROcodone/acetaminophen 5mg/325mg tablet PO PRN (14:40)
[2025-05-06] MEDS ORDERED: magnesium sulf-water 2g/50mL 50 ML IV PRN (14:40)
[2025-05-06] MEDS ORDERED: haloperidol lactate 5mg/ml inj IM PRN (14:40)
[2025-05-06] MEDS: folic acid 1mg/0.2ml inj IV ONE (14:45)
[2025-05-06] MEDS ORDERED: thiamine 100mg/ml 2ml inj. IV SCH (14:54)
[2025-05-06 15:21] LABS: APTT 21 SECONDS (22-32); INR 1.1 INR
[2025-05-06 15:32] LABS: PHOSPHORUS 2.5 MG/DL (2.3-4.5); PRO BRAIN NATRIURETIC PEPTIDE < 30 PG/ML (0-125)
[2025-05-06] MEDS: folic acid 1mg/0.2ml inj IV SCH (15:33)
[2025-05-06] MEDS ORDERED: octreotide inj. 1,250 MCG in normal saline 250ml IV soln 243.75 ML IV SCH (15:55)
[2025-05-06] MEDS ORDERED: iohexol 300mg/ml 100ml inj. ONE (16:17)
[2025-05-06] MEDS: pantoprazole 40MG/NS 100ML BAG 100 ML IV SCH (17:30)
[2025-05-06] MEDS: octreotide inj. 500 MCG in normal saline 100ml IV soln 97.5 ML IV SCH (17:31)
[2025-05-06] MEDS: thiamine 100mg/ml 2ml inj. IV SCH (17:40)
--- NOTE | 2025-05-06 17:52 | RADIOLOGY REPORT ---
INDICATION: sepsis GI Bleeding TECHNIQUE: CT axial images of the chest, abdomen and pelvis are obtained with intravenous contrast. Coronal and sagittal reformats were obtained. Radiation Dose Information: CTDI volume is 28 mGy. Dose-length product is 2326 mGy*cm COMPARISON: None FINDINGS: The trachea is patent. No pneumothorax. No pulmonary airspace consolidation. No pleural effusion. Heart normal in size. No supraclavicular, axillary lymphadenopathy. Adrenal glands unremarkable. Spleen unremarkable. Pancreas unremarkable. Severe hepatic steatosis. Hepatomegaly. No CT evidence for cholelithiasis. Right kidney unremarkable. Left renal peripelvic cysts. There is mild left perinephric stranding and delayed nephrogram. Left renal pelvic/ calyceal cystic prominence Stomach is relatively nondistended. Small bowel loops are normal in caliber. There are multiple segments of mild colonic wall thickening. There is fatty prominence of the large bowel wall within the ascending colon. The appendix is removed. Stranding surrounding the hepatic flexure of the colon. Abdominal aorta normal in caliber. Subcentimeter retroperitoneal lymph nodes. Bladder partially distended. No free pelvic fluid. No inguinal lymphadenopathy. [id number] bilateral sacroiliac degenerative joint disease. No aggressive osseous process. Supraumbilical hernia containing fat measuring 5.5 x 2.0 cm. IMPRESSION: The large bowel demonstrates multiple segments of bowel wall thickening with underlying fatty prominence of the large bowel wall. There is Stranding surrounding The hepatic flexure of the colon. Differential considerations include inflammatory bowel disease, colitis. Severe hepatic steatosis. Left perinephric stranding and slightly delayed nephrogram. Correlate for urinary tract infection /pyelonephritis Left renal calyceal/ cystic prominence which could represent moderate left hydronephrosis secondary to UPJ obstruction. Peripelvic cysts felt to be less likely given the underlying delayed nephrogram and perinephric stranding. CT examination with excretory phase imaging of the kidneys can be obtained for further evaluation. Recommend urology consultation. Supraumbilical hernia containing fat measuring 5.5 x 2.0 cm.
[2025-05-06 18:00] VITALS: BP 145/96; PULSE 101; RESP 17; TEMP 97.9; O2SAT 96
--- NOTE | 2025-05-06 18:00 | RADIOLOGY REPORT ---
CLINICAL HISTORY: seizuers TECHNIQUE: Helical imaging carried out from skull base to vertex without intravenous contrast. This exam was performed according to our departmental dose optimization program. Up-to-date CT equipment and radiation dose reduction techniques are utilized as appropriate. CTDIVol: 69.26 mGy DLP: 1338.96 mGy-cm WID: COMPARISON: None FINDINGS: Mild patchy low attenuation in the cerebral white matter consistent with nonspecific white matter disease The ventricles and subarachnoid spaces are normal in size and configuration. There is no midline shift or mass effect. The chavez white matter interfaces are maintained. The basal cisterns are patent. There is no evidence of acute intracranial hemorrhage or extra-axial fluid collection. The mastoid air cells and visualized paranasal sinuses are well-aerated. IMPRESSION: 1. No acute intracranial abnormality. 2. Very mild Nonspecific white matter disease which can be due to early chronic small-vessel ischemia, sequelae of remote infectious or inflammatory insult, or demyelinating process.
[2025-05-06] MEDS ORDERED: OMEP20CA16 PO (18:13)
[2025-05-06 18:48] LABS: MEAN PLATELET VOLUME 8.7 FL (7.4-10.4); RED CELL DISTRIBUTION WIDTH 13.0 % (11.5-14.5)
[2025-05-06] MEDS: docusate sod 100mg capsule PO SCH (19:17)
[2025-05-06] MEDS: K and/or MAG REPLACEMENT MC SCH (19:19)
[2025-05-06 20:00] VITALS: RESP 17; O2SAT 96
[2025-05-06 22:00] VITALS: BP 138/95; PULSE 101; RESP 18; TEMP 98.1; O2SAT 99
[2025-05-07] VITALS (7 sets, daily range): BP systolic 108–148; BP diastolic 75–98; PULSE 78–98; RESP 13–18; TEMP 96.9–98.1; O2SAT 95–98
[2025-05-07 01:29] LABS: MEAN PLATELET VOLUME 8.7 FL (7.4-10.4); RED CELL DISTRIBUTION WIDTH 13.2 % (11.5-14.5)
[2025-05-07 01:46] LABS: CREATININE 0.76 MG/DL (0.60-1.10); TOTAL CARBON DIOXIDE 27.3 MMOL/L (24-32); eCRCL 131 ML/MIN; eGFR > 90 ML/MIN
[2025-05-07 10:53] LABS: MEAN PLATELET VOLUME 9.0 FL (7.4-10.4); RED CELL DISTRIBUTION WIDTH 12.8 % (11.5-14.5)
--- NOTE | 2025-05-07 12:38 | CONSULTATION REPORT - RESIDENT ---
Consult Providers to CC Resident Creating Document: SATYAAmeeSHELIA PITTS History of Present Illness Reason for Admit\Complaint: Alcohol withdrawal seizure History of Present Illness A 44-year-old male with a history of severe chronic alcohol use disorder, chronic alcohol-related liver disease with hepatic steatosis, GERD, hypertension, gout, and chronic marijuana use, presented to the emergency department with a withdrawal seizure after attempting to reduce his alcohol intake. The patient reports drinking heavily for approximately one year, with escalation following a divorce. He typically consumes approximately one fifth of hard liquor daily and attempted to taper down prior to presentation. His last alcohol intake was yesterday at 11:00 AM. He reports poor sleep, and anxiety, consistent with alcohol withdrawal. He denies chest pain. He previously tried naltrexone but discontinued it due to intolerance. In the emergency department, the patient experienced a seizure attributed to alcohol withdrawal and was admitted for further management. He is currently on an alcohol withdrawal protocol. He denies hematemesis or melena. He reports one episode of fresh blood per rectum at approximately 8:00 AM yesterday, with no recurrence since admission. Admission hemoglobin was 16, which has down-trended to 13.7 , secondary to hemodilution from IV fluids, as the patient remains hemodynamically stable without ongoing bleeding. Platelets and white blood cell counts were low on admission. Liver enzymes were markedly elevated on admission (AST/ALT 327/271), now trending down (220/220). Alkaline phosphatase is normal, INR and PT are normal and bilirubin increased mildly from 1.3 to 1.6. Lipase is normal. Blood alcohol level is <10. CT chest/abdomen/pelvis: Severe hepatic steatosis Segmental large bowel wall thickening with surrounding fat stranding, most notable at the hepatic flexure, suggestive of colitis (inflammatory vs other) Left perinephric stranding and delayed nephrogram, concerning for possible pyelonephritis or obstruction Moderate left hydronephrosis likely due to UPJ obstruction Supraumbilical fat-containing hernia The primary team initiated pantoprazole and octreotide drip, though the patient has had no evidence of upper GI bleeding. A discussion was held with the patient regarding alcohol cessation and he expressed strong motivation to quit drinking and willingness to follow up as an outpatient. Allergies: Coded Allergies: No Known Allergies (Unverified , 05/06/25) Home Medications Home Medications Active Reported Omeprazole 20 Mg Capsule.dr 1 Cap PO TID 30 Days Naltrexone Hcl 50 Mg Tablet 1 Tab PO DAILY 30 Days Allopurinol* (Allopurinol) 100 Mg Tablet 3 Tab PO DAILY 30 Days Lisinopril 20 Mg Tablet 2 Tab PO DAILY 30 Days Norvasc* (Amlodipine Besylate) 2.5 Mg Tablet 4 Tab PO DAILY 30 Days Past Medical History Past Medical History Alcohol use disorder Hypertension Gout Past Surgical History Surgical History Comment No past surgical history Past Social History Social History Comment Admits to Drinking of about a small bottle of vodka daily since the past 1 year No illicit use of drugs Exam Vitals: Vital Signs Date Time Temp Pulse Resp B/P (MAP) Pulse Ox O2 Delivery O2 Flow Rate FiO2 05/07/25 11:32 28 05/07/25 02:00 98.1 98 122/80 (94) 95 Room Air 05/06/25 11:52 0 General: Awake , alert, and oriented x4 HEENT: Atraumatic, normocephalic, EOMI, anicteric sclera ; pink conjunctiva Neck: Trachea midline. Supple, full range of motion, no JVD Cardiac: Regular rhythm, regular rate, tachycardic with no murmurs all over the precordium. Respiratory: Equal breath sounds bilaterally, no tachypnea, no wheezing ,rub or rales, Chest wall is symmetric and without deformity. Gastrointestinal: Abdomen symmetric, distended, nontender, normal bowel sounds x4 quadrant Musculoskeletal: No pedal edema, no cyanosis Neurological: No tremors, no FNDs Skin: Warm and dry Diagnostic Data Last Recorded Lab Results: 05/07/25 1030 05/07/25 0116 Diagnostic Data: Laboratory Tests Test 05/06/25 14:57 Prothrombin Time 11.0 SECONDS (9.0-12.0) INR International Normalized Ratio 1.1 INR Activated Partial Thromboplast Time 21 SECONDS (22-32) L Coagulation Comments Additional Plan 1. Alcohol-Related Liver Disease with Severe Hepatic Steatosis The patient has biochemical and radiographic evidence of alcohol-related liver injury with significant transaminitis that is now improving, normal INR, and only mild bilirubin elevation. There is no current evidence of decompensated cirrhosis. Plan: Liver enzyme pattern and improvement are most consistent with acute alcohol- related hepatocellular injury No indication for corticosteroids at this time Strongly counselled on complete alcohol abstinence Recommend outpatient GI follow-up for fibrosis assessment once abstinent Trend LFTs during hospitalization Avoid hepatotoxic medications 2. Reported Lower GI Bleeding - Single Episode of Hematochezia The patient reports one self-limited episode of fresh blood per rectum prior to admission, with no recurrence. Hemoglobin remains stable. CT shows segmental colitis, which may explain bleeding. Plan: No indication for urgent endoscopy at this time given: Hemodynamic stability No ongoing bleeding Stable hemoglobin Discontinue octreotide drip from a GI standpoint (no evidence of variceal or upper GI bleed) Continue PPI once daily for GERD Recommend outpatient colonoscopy once medically stable and alcohol withdrawal has resolved to evaluate CT findings and hematochezia 3. Colitis on CT Imaging CT demonstrates segmental large bowel wall thickening and pericolonic fat stranding, most prominent at the hepatic flexure. Differential includes inflammatory colitis, infectious colitis or alcohol- related ischemic changes, though symptoms are minimal. Plan: No inpatient endoscopic evaluation indicated at this time Monitor for worsening diarrhea, abdominal pain or recurrent bleeding Outpatient colonoscopy for definitive evaluation 4. Alcohol Withdrawal with Seizure Alcohol withdrawal likely contributing to current presentation and lab abnormalities. Plan (per primary team): Continue CIWA protocol and benzodiazepine management Strongly recommend addiction medicine referral Alternative pharmacologic options for alcohol cessation (acamprosate, supervised retrial of naltrexone) 5. Counseling on Alcohol Cessation The patient is highly motivated to stop drinking and understands the impact of alcohol on his liver and overall health. Plan: Extensive counseling provided regarding: Risks of continued alcohol use Progression to cirrhosis and GI bleeding Arranged outpatient GI follow-up Alcohol withdrawal seizure Hypertensive urgency Thrombocytopenia and leukopenia Possible UTI/pyelonephritis and hydronephrosis Supraumbilical hernia Patient went per primary team Discussed the above plan with Dr. Albright Code Status: Full code status Adiel Pereira MD Internal Medicine Resident, PGY-2 Date of Service: May 07, 2025 Billing Provider: BULL STRONG MD, GAURAV, RES May 07, 2025 12:38
[2025-05-07 19:17] LABS: MEAN PLATELET VOLUME 9.5 FL (7.4-10.4); RED CELL DISTRIBUTION WIDTH 12.9 % (11.5-14.5)
--- NOTE | 2025-05-07 19:22 | PROGRESS NOTE ---
Daily Progress Note Providers to CC Feels better today, tolerating medication fine patient has no seizure ~ Central Line/PICC still needed: No Link-Non Protocol Link Indications Met/Not Met: F/C Indications Not Met Antibiotic Timeout Antibiotic Ordered?: Yes MRSA Education MRSA Education Provided to pt: Yes Subjective As above Objective Vital Signs Date Time Temp Pulse Resp B/P (MAP) Pulse Ox O2 Delivery O2 Flow Rate FiO2 05/07/25 16:46 14 05/07/25 15:00 97.9 90 148/98 (115) 97 Room Air 05/07/25 08:00 0.0 Vital signs, stable ,afebrile. Pulse Oximetry reflects adequate oxygenation. General: well developed, well nourished. Awake , alert, and oriented x4, resting comfortably in the bed, in no acute distress . Skin: Warm, dry, no pallor, no rash or petechiae. HEENT: Atraumatic, normocephalic, EOMI, anicteric sclera B; pink conjunctiva; PERRLA, normal oropharynx, moist oral and nasal mucosa. Tympanic membrane , nose , throat clear. Neck: Trachea midline. Supple, full range of motion, no JVD, bruit , hepatojugular reflex , lymphadenopathy or masses, or other lesions Cardiac: Regular rhythm, regular rate no murmurs, rubs, or gallops. Normal S1 and S2, no S3 noticed. PMI is normal. Respiratory: Equal breath sounds bilaterally, no tachypnea; lungs clear to auscultation bilaterally, no wheezing ,rub or rales, or crackles. Chest wall is symmetric and without deformity. No signs of trauma. Chest wall is nontender. No signs of respiratory distress. Resonance is normal upon percussion bilaterally. Gastrointestinal: Abdomen symmetric, non-distended, soft, non-tender, normal bowel sounds x4 quadrant, normoactive, no hepatosplenomegaly , no masses , no bruit, no flank pain bilaterally. No voluntary guarding, rebound, or rigidity. No tenderness to percussion. No pulsatile masses. Equal femoral pulses. No Hanley's sign or McBurney point tenderness. Back; no CVA tenderness bilaterally, no deformities. Neck and back are without deformity as well. No tenderness noted on palpation of the spinous processes. Spinous processes are midline. Cervical, thoracic, and lumbar paraspinal muscles are not tender and are without spasm. : normal external genitalia, without lesions, swelling, masses or tenderness. Musculoskeletal: Extremities, normal range of motion, non-tender, muscle strength 5/5 x 4. Negative Homans signs bilaterally on lower extremity. Distal pulses full symmetrical, no clubbing, cyanosis , edema. Neurological: Speech is clear, alert, and oriented x 4. No motor or sensory deficit, deep tendon reflexes normal, cerebellar intact. Cranial nerves II-XII intact. Psych: Alert and or appropriate, normal affect. Vascular: Good distal pulses, which are equal x4; capillary refill less than 2 seconds. Lymphatic, no lymphadenopathy. Result Diagram: 05/07/25 1755 05/07/25 0116 Coagulation Studies Laboratory Tests Test 05/06/25 14:57 Prothrombin Time 11.0 SECONDS (9.0-12.0) INR International Normalized Ratio 1.1 INR Activated Partial Thromboplast Time 21 SECONDS (22-32) L Coagulation Comments Problem\Assessment\Plan Assessment Chronic alcoholism including ongoing currently Alcohol withdrawal syndrome Withdrawal from alcohol seizure Lower GI bleeding, resolved Chronic alcohol liver disease Hepatic steatosis Leukopenia Thrombocytopenia Hypertension urgency Tachyarrhythmia dehydration associated with ketonuria Comorbidities, pre morbid obesity, BMI 36, gout, marijuana use recreational, GERD Plan Withdrawal protocol from alcohol Navigator consult Protonix infusion completed Sandostatin infusion completed Seizure precautions CT head abdomen pelvis completed PT evaluation and treatment Blood pressure control GI consult appreciated I reconciled home medications DVT gastropathy prophylaxis addressed Date of Service: May 07, 2025 Billing Provider: RICHARD MARTINEZ MD Common Visit Codes: [id number] INP/OBS CARE(HIGH) RICHARD MARTINEZ MD May 07, 2025 19:22
[2025-05-08 01:24] LABS: OCCULT BLOOD STOOL NEGATIVE (Neg)
[2025-05-08 01:55] LABS: URINE AMPHETAMINE SCREEN NEGATIVE (Neg); URINE BARBITUATE SCREEN POSITIVE (Neg); URINE BENZODIAZEPINES SCREEN POSITIVE (Neg); URINE CANNABINOID SCREEN POSITIVE (Neg); URINE COCAINE SCREEN NEGATIVE (Neg); URINE METHADONE SCREEN NEGATIVE (Neg); URINE OPIATE SCREEN NEGATIVE (Neg); URINE PHENCYCLIDINE SCREEN NEGATIVE (Neg)
[2025-05-08 02:00] VITALS: BP 124/88; PULSE 80; RESP 13; TEMP 97.5; O2SAT 95
[2025-05-08 06:00] VITALS: BP 121/81; PULSE 77; RESP 20; TEMP 97.9; O2SAT 97
[2025-05-08 07:28] LABS: MEAN PLATELET VOLUME 9.5 FL (7.4-10.4); RED CELL DISTRIBUTION WIDTH 13.1 % (11.5-14.5)
[2025-05-08 08:01] LABS: CREATININE 0.82 MG/DL (0.60-1.10); TOTAL CARBON DIOXIDE 28.0 MMOL/L (24-32); eCRCL 121 ML/MIN; eGFR > 90 ML/MIN
[2025-05-08] MEDS: potassium Cl 20 mEq SR tablet PO PRN (11:03)
[2025-05-08 11:08] VITALS: RESP 20
[2025-05-08] MEDS ORDERED: LORA-268 PO ×2 (13:44→13:55)
[2025-05-08] MEDS ORDERED: CHLO25CA10 PO ×2 (13:44→13:55)
--- NOTE | 2025-05-08 18:53 | DISCHARGE SUMMARY ---
Discharge Summary Providers to CC Patient feels fine today asking to be discharged home ~ Discharge Summary Assessment Chronic alcoholism including ongoing currently Alcohol withdrawal syndrome Withdrawal from alcohol seizure Lower GI bleeding Chronic alcohol liver disease Hepatic steatosis Leukopenia Thrombocytopenia Cancer urgency Tachyarrhythmia dehydration associated with ketonuria Comorbidities, pre morbid obesity, BMI 36, gout, marijuana use recreational, GERD Admission Diagnosis: ETOH GI Bleed Admission Diagnosis Comment: Chronic alcoholism including ongoing currently Alcohol withdrawal syndrome Withdrawal from alcohol seizure Lower GI bleeding Chronic alcohol liver disease Hepatic steatosis Leukopenia Thrombocytopenia Cancer urgency Tachyarrhythmia dehydration associated with ketonuria Comorbidities, pre morbid obesity, BMI 36, gout, marijuana use recreational, GERD Hospital Course DATE OF ADMISSION: May 06, 2025 DATE OF DISCHARGE: May 08/2025 Discharge Diagnosis\Comment: Chronic alcoholism including ongoing currently Alcohol withdrawal syndrome Withdrawal from alcohol seizure Lower GI bleeding Chronic alcohol liver disease Hepatic steatosis Leukopenia Thrombocytopenia Cancer urgency Tachyarrhythmia dehydration associated with ketonuria Comorbidities, pre morbid obesity, BMI 36, gout, marijuana use recreational, GERD Operations\Procedures: Non Consultants: GI doctor Complications: Non Condition on DC: Stable Discharge Summary: THIS IS 44-YEAR-OLD MALE, relatively in good health except history of chronic alcohol abuse including currently, chronic marijuana use recreational, GERD, hypertensive, gout, chronic alcohol liver disease, hepatic steatosis secondary to chronic alcohol use, presented today to emergency department chief complaint seizure, 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 STATES HE HAS BEEN ATTEMPTING TO TREND DOWNWARD FROM HIS INTAKE WHICH IS TYPICALLY 1/5 OF HARD ALCOHOL DAILY. STATES HE IS NOT ABLE TO SLEEP HAS TREMORS DENIES ANY CHEST PAIN. HE TRIED TAKING NALTREXONE BUT IT MADE HIM SICK.. STATES HE WANTS TO QUIT DRINKING BUT DOES NOT KNOW HOW. In emergency department patient was evaluated by medical provider, was diagnosed with alcoholism heavy, withdrawal seizure, alcohol withdrawal syndrome, hypertensive urgency, hepatic steatosis chronic liver disease secondary to alcohol abuse, thrombocytopenia l eukopenia, GI bleeding, and decision was made to admit patient for further evaluation and treatment, no additional complaint or concern. Patient was extensively evaluated treated, today patient is feeling fine asking to be discharged home he will be discharged in stable condition medication reconciled follow-up PCP in the morning today on physical exam, Vital signs, stable ,afebri le. Pulse Oximetry reflects adequate oxygenation. BMI is General: well developed, well nourished. Awake , alert, and oriented x4, resting comfortably in the bed, in no acute distress . Skin: Warm, dry, no pallor, no rash or petechiae. HEENT: Atraumatic, normocephalic, EOMI, anicteric sclera B; pink conjunctiva; PERRLA, normal oropharynx, moist oral and nasal mucosa. Tympanic membrane , nose , throat clear. Neck: Trachea midline. Supple, full range of motion, no JVD, bruit , hepatojugular reflex , lymphadenopathy or masses, or other lesions Cardiac: Regular rhythm, regular rate no murmurs, rubs, or gallops. Normal S1 and S2, no S3 noticed. PMI is normal. Respiratory: Equal breath sounds bilaterally, no tachypnea; lungs clear to auscultation bilaterally, no wheezing ,rub or rales, or crackles. Chest wall is symmetric and without deformity. No signs of trauma. Chest wall is nontender. No signs of respiratory distress. Resonance is normal upon percussion bilaterally. Gastrointestinal: Abdomen symmetric, non-distended, soft, non-tender, normal bowel sounds x4 quadrant, normoactive, no hepatosplenomegaly , no masses , no bruit, no flank pain bilaterally. No voluntary guarding, rebound, or rigidity. No tenderness to percussion. No pulsatile masses. Equal femoral pulses. No Hanley's sign or McBurney point tenderness. Back; no CVA tenderness bilaterally, no deformities. Neck and back are without deformity as well. No tenderness noted on palpation of the spinous processes. Spinous processes are midline. Cervical, thoracic, and lumbar paraspinal muscles are not tender and are without spasm. : normal external genitalia, without lesions, swelling, masses or tenderness. Musculoskeletal: Extremities, normal range of motion, non-tender, muscle strength 5/5 x 4. Negative Homans signs bilaterally on lower extremity. Distal pulses full symmetrical, no clubbing, cyanosis , edema. Neurological: Speech is clear, alert, and oriented x 4. No motor or sensory deficit, deep tendon reflexes normal, cerebellar intact. Cranial nerves II-XII intact. Psych: Alert and or appropriate, normal affect. no suicidal Ideation or plan Vascular: Good distal pulses, which are equal x4; capillary refill less than 2 seconds. Lymphatic, no lymphadenopathy. *Problems/Diagnosis: (1) Alcohol withdrawal syndrome Status: Acute (2) Alcohol abuse Status: Acute Total Time Spent on D/C: > 30 Minutes Date of Service: May 08, 2025 Billing Provider: RICHARD MARTINEZ MD Common Visit Codes: 87181-HPJ/OBS DISCH DAY >30min RICHARD MARTINEZ MD May 08, 2025 18:52
--- NOTE | 2025-05-08 19:53 | PROGRESS NOTE- Residence ---
Progress Note - Resident Providers to CC Resident Creating Document: HONG PEREIRA RES ~ Antibiotic Timeout Antibiotic Ordered?: No Subjective Patient was seen and examined at bedside, no active alcohol withdrawal. No Further episodes of hematochezia noted Objective Vital Signs Date Time Temp Pulse Resp B/P (MAP) Pulse Ox O2 Delivery O2 Flow Rate FiO2 05/08/25 11:08 20 05/08/25 06:30 82 05/08/25 06:00 97.9 121/81 (94) 97 Room Air 05/07/25 20:00 0.0 Result Diagram: 05/08/25 0615 05/08/25 06 Awake , alert, and oriented x4 HEENT: Atraumatic, normocephalic, EOMI, anicteric sclera ; pink conjunctiva Neck: Trachea midline. Supple, full range of motion, no JVD Cardiac: Regular rhythm, regular rate, tachycardic with no murmurs all over the precordium. Respiratory: Equal breath sounds bilaterally, no tachypnea, no wheezing ,rub or rales, Chest wall is symmetric and without deformity. Gastrointestinal: Abdomen symmetric, distended, nontender, normal bowel sounds x4 quadrant Musculoskeletal: No pedal edema, no cyanosis Neurological: No tremors, no FNDs Skin: Warm and dry Coagulation Studies Laboratory Tests Test 05/06/25 14:57 Prothrombin Time 11.0 SECONDS (9.0-12.0) INR International Normalized Ratio 1.1 INR Activated Partial Thromboplast Time 21 SECONDS (22-32) L Coagulation Comments Advance Care Planning Advanced Care plannin - 30 Minutes Plan Plan 1. Alcohol-Related Liver Disease with Severe Hepatic Steatosis The patient has biochemical and radiographic evidence of alcohol-related liver injury with significant transaminitis that is now improving, normal INR, and only mild bilirubin elevation. There is no current evidence of decompensated cirrhosis. Plan: Liver enzyme pattern and improvement are most consistent with acute alcohol- related hepatocellular injury No indication for corticosteroids at this time Strongly counselled on complete alcohol abstinence Trend LFTs Avoid hepatotoxic medications 2. Reported Lower GI Bleeding - Single Episode of Hematochezia The patient reports one self-limited episode of fresh blood per rectum prior to admission, with no recurrence. Hemoglobin remains stable. CT shows segmental colitis, which may explain bleeding. Plan: No indication for urgent endoscopy at this time given: Hemodynamic stability No ongoing bleeding Stable hemoglobin Continue PPI once daily for GERD Recommend outpatient colonoscopy once medically stable and alcohol withdrawal has resolved to evaluate CT findings and hematochezia 3. Colitis on CT Imaging CT demonstrates segmental large bowel wall thickening and pericolonic fat stranding, most prominent at the hepatic flexure. Differential includes inflammatory colitis, infectious colitis or alcohol- related ischemic changes, though symptoms are minimal. Plan: No inpatient endoscopic evaluation indicated at this time Monitor for worsening diarrhea, abdominal pain or recurrent bleeding Outpatient colonoscopy for definitive evaluation 4. Alcohol Withdrawal with Seizure Alcohol withdrawal likely contributing to current presentation and lab abnormalities. Plan (per primary team): Continue CIWA protocol and benzodiazepine management Strongly recommend addiction medicine referral Alternative pharmacologic options for alcohol cessation (acamprosate, supervised retrial of naltrexone) 5. Counseling on Alcohol Cessation The patient is highly motivated to stop drinking and understands the impact of alcohol on his liver and overall health. Plan: Extensive counseling provided regarding: Risks of continued alcohol use Progression to cirrhosis and GI bleeding Arranged outpatient GI follow-up Alcohol withdrawal seizure Hypertensive urgency Thrombocytopenia and leukopenia Possible UTI/pyelonephritis and hydronephrosis Supraumbilical hernia Patient went per primary team Discussed the above plan with Dr. Albright Code Status: Full code status Hong Pereira MD Internal Medicine Resident, PGY-2 Date of Service: May 08, 2025 Billing Provider: BULL STRONG MD, GAURAV, RES May 08, 2025 19:52
== END 2025-05-08 13:30 | disposition home or self-care (01) | DRG 254 ==
LOC: ER 11:50 → ED HOLD 14:45 → PCU 3S 16:38
PROVIDERS: ADMIT Family Medicine; ATTEND Family Medicine
PROC: BW251ZZ Computerized Tomography (CT Scan) of Chest, Abdomen and Pelvis using Low Osmolar Contrast (ICD-10-PCS; principal; 2025-05-06)
DX: K92.1 Melena (principal); D69.6 Thrombocytopenia, unspecified; D72.819 Decreased white blood cell count, unspecified; I16.0 Hypertensive urgency; F10.239 Alcohol dependence with withdrawal, unspecified; K76.0 Fatty (change of) liver, not elsewhere classified; I10 Essential (primary) hypertension; F12.90 Cannabis use, unspecified, uncomplicated; K52.9 Noninfective gastroenteritis and colitis, unspecified; K21.9 Gastro-esophageal reflux disease without esophagitis; E86.0 Dehydration; R82.4 Acetonuria; K70.9 Alcoholic liver disease, unspecified; Z79.899 Other long term (current) drug therapy
CPT/HCPCS: 36415; 70450; 71260; 74177; 80053; 80305; 80320; 81001; 82009; 82272; 82550; 83605; 83690; 83735; 83880; 84100; 84443; 85025; 85027; 85610; 85730; 87081; 93005; 96365; 96375; 99285; A6258; A6590; G0378; J2060; J2354; J2470; J2560; J3360; J3411; J3490; J7030; Q9967